=== PATIENT | male | born 1940 | race Caucasian/White ===

== ENCOUNTER 2016-03-27 16:48 | Emergency (ER) | payer OTHER, MEDICARE ==
[~2016-03-27] VITALS: Ht 177.8 cm; Wt 78.5 kg
[~2016-03-27 16:48] MED LIST: AMIODARONE HCL200 M1 PO; AMLODIPINE BESYL5 M1 PO; BICALUTAMIDE50 M1 PO; FLEXERIL 5MG TAB5 MG PO; HYDROXYZINE HCL25 M2 PO; LOSARTAN POTASS25 M1 PO; MEDROL4 M2 PO; METOPROLOL SUCC50 M2 PO; XARELTO15 M1 PO
[2016-03-27] MEDS ORDERED: LOSARTAN POTASS50 M1 PO (17:56)
[2016-03-27] MEDS ORDERED: AMLODIPINE BESY10 M1 PO (17:58)
--- NOTE | 2016-03-27 18:01 | ED MVC/FALL/TRAUMA COMPLAINT ---
History of Present Illness General Chief Complaint: Fall Stated Complaint: FALL THIS AFTERNOON, R ARM AND R LEG PAIN Source: patient Exam Limitations: no limitations Vital Signs & Intake/Output Vital Signs & Intake/Output Vital Signs Date Time Temp Pulse Resp B/P Pulse O2 O2 Flow FiO2 Ox Delivery Rate 03/27 1949 62 112/70 03/27 1822 98 Room Air 03/27 1706 97.1 58 15 103/53 95 Room Air ED Intake and Output 03/28 0000 03/27 1200 Intake Total Output Total Balance Patient 173 lb Weight Allergies Coded Allergies: NO KNOWN ALLERGIES (07/25/15) Reconcile Medications Amiodarone HCl 200 MG TABLET 1 TAB PO DAILY HEART (Reported) Amlodipine Besylate 10 MG TABLET 1 TAB PO DAILY BP (Reported) Bicalutamide 50 MG TABLET 1 TAB PO DAILY CANCER (Reported) Losartan Potassium 50 MG TABLET 1 TAB PO DAILY BP (Reported) Oxycodone HCl/Acetaminophen (Percocet 5-325 MG Tablet) 5 MG-325 MG TABLET 1 TAB PO Q4-6 PRN PAIN Rivaroxaban (Xarelto) 15 MG TABLET 1 TAB PO DAILY BLOOD THINNER (Reported) Triage Note: PT TO ED AFTER SLIPPING AND FALLING AT ICE AT HOME, NO LOC, NO HEAD STRIKE, C/O R SIDE BODY PAIN, SPECIFICALLY SHOULDER AND R ARM. UNABLE TO ASSESS R ARM AND SHOULDER DUE TO PT NOT WANTING HIS COAT REMOVED "UNTIL WE HAVE TO DO IT IN A ROOM" Triage Nurses Notes Reviewed? 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 No loss of consciousness had occurred. Patient has been unable to move his arm since. Patient has been able to weight bear with mild pain to the right hip. Denies any head strike. Denies any neck pain back pain abdominal pain chest pain elbow pain and wrist pain headache. (REYNOLD CHAN) Past History Travel History Traveled to [place] past 21 day No Medical History Any Pertinent Medical History? see below for history Neurological: NONE EENT: NONE Cardiovascular: AFIB, hypertension Respiratory: NONE Gastrointestinal: NONE Hepatic: NONE Renal: NONE Musculoskeletal: BONE METS Psychiatric: NONE Endocrine: NONE Cancer(s): PROSTATE W BONE METS (metastatic) Surgical History Surgical History: non-contributory Psychosocial History What is your primary language Lebanese Tobacco Use: Quit >30 days ago ETOH Use: occasional use Illicit Drug Use: denies illicit drug use Family History Hx Contributory? No (REYNOLD CHAN) Review of Systems Review of Systems Constitutional: Reports: no symptoms. Eyes: Reports: no symptoms. Ears, Nose, Throat, Mouth: Reports: no symptoms. Respiratory: Reports: no symptoms. Cardiovascular: Reports: no symptoms. Gastrointestinal/Abdominal: Reports: no symptoms. Genitourinary: Reports: no symptoms. Musculoskeletal: Reports: see HPI, joint pain, muscle pain. Skin: Reports: no symptoms. Neurological/Psychological: Reports: no symptoms. All Other Systems: Reviewed and Negative (REYNOLD CHAN) Physical Exam Physical Exam General Appearance: no apparent distress, alert, comfortable Comments: Well-developed well-nourished person in no acute distress HEENT: Normal EENT exam, extraocular motion intact, no nystagmus. Pupils equally round and reactive to light and accommodation. Nose is atraumatic. External auditory canal and Tympanic membranes clear. Pharynx normal. No swelling or edema. Neck: Supple, no lymphadenopathy, normal range of motion without pain or tenderness Back: Nontender, no CVA tenderness. Full range of motion Cardiovascular: Regular rate and rhythms no murmurs rubs or gallops, normal JVP Respiratory: Chest nontender. No respiratory distress.breath sounds clear to auscultation bilaterally Abdomen: Soft, nontender nondistended, no appreciable organomegaly. Normal bowel sounds. No ascites Extremity: No edema, no calf tenderness to palpation, normal and equal pulses. Right shoulder noted lateral glenohumeral point tenderness and sulcus sign nontender clavicle patient unable to move right arm Right elbow nontender full active range of motion normal inspection Right wrist and hand nontender normal inspection Right arm radial pulse +2 dermatomes intact capillary refill less than 2 seconds in 1 - 5 digits Right hip patient able to perform straight leg raise with pain full active range of motion noted Right knee normal inspection nontender full active range of motion Right ankle nontender normal inspection Right leg pedal pulse +2 dermatomes intact Neuro: Alert oriented x3, motor sensory normal, cranial nerves II through XII grossly intact. Skin: No appreciable rash on exposed skin, skin is warm and dry. Psych: Mood and affect is normal, memory and judgment is normal. Core Measures ACS in differential dx? No Severe Sepsis Present: No Septic Shock Present: No (REN GRAHAM,REYNOLD) Progress Differential Diagnosis: aoritic dissection, abd injury, C/T/L spine injury, ext injury, ICH, pelvis injury, pnemothorax, spinal cord injury, FRACTURE, DISLOCATION Plan of Care: Orders Procedure Date/time Status XRY-SHOULDER COMPLETE-RIGHT 03/27 1817 Active XRY-HIP 2-3 VIEWS, RIGHT 03/27 1817 Active Patient declines pain medications when offered Patient has no central spinous tenderness and denies any head strike or head trauma. Patient has nontender abdomen and no chest pain or rib pain. Patient was neurovascularly intact for concerns of right shoulder dislocation. Patient was able to weight-bear in the emergency room with pain to the right hip x-rays to the right hip and right ankle are warranted where patient has pain Discussed patient with Dr. Lawson who evaluated x-rays and which he advised patient to follow up in office tomorrow have shoulder immobilizer placed Shoulder immobilizer was placed to right shoulder which. Post neurovascular was intact. Patient was able to weight-bear in the emergency room and has concerns of right hip strain however no osseous injury is noted on x-ray. Patient does have significant right humeral fracture Discussed results and disposition plan with patient and family members who felt comfortable that patient return back home (REN GRAHAM,REYNOLD) Diagnostic Imaging: Viewed by Me: Radiology Read. Radiology Impression: acute abnormality, fracture Comments: PATIENT: VASILE KAM PRESENT AGE: 75 PATIENT ACCOUNT NO: [id number] : 38 LOCATION: [facility] ORDERING PHYSICIAN: REYNOLD GRAHAM SERVICE DATE: 03/27/16 EXAM TYPE: RAD - XRY-HIP 2-3 VIEWS, RIGHT; XRY-SHOULDER COMPLETE-RIGHT EXAMINATION: XR SHOULDER, RIGHT XR HIP, RIGHT CLINICAL INFORMATION: Right shoulder pain following a fall. Dislocation. COMPARISON: Pelvic radiograph dated 02/25/2014. TECHNIQUE: 3 views of the right shoulder were obtained. 2 views of the right hip were obtained. FINDINGS: Right shoulder: There is a comminuted, displaced fracture of the proximal humerus involving the transverse humeral neck component as well as a displaced greater tuberosity component. There is mild inferior subluxation of the humeral head. Degenerative changes are noted at the acromioclavicular and glenohumeral joint. There is no osseous erosion. There is no abnormal soft tissue calcification. Right hip: No fracture or dislocation. No significant joint space narrowing or marginal osteophytosis. 1.6 cm cystic structure within the femoral head and neck junction, likely representing a herniation pit. No abnormal soft tissue calcification. IMPRESSION: Right shoulder: Comminuted, displaced fracture of the proximal humerus with a transverse humeral neck component as well as a displaced greater tuberosity component. Right hip: No fracture or dislocation. (REYNOLD CHAN) Departure Departure Disposition: HOME OR SELF CARE Condition: Stable Clinical Impression Primary Impression: Right humeral fracture Secondary Impressions: Right hip pain Referrals: CHRISTEN WEEKS,SHIVAM (PCP/Family) KRISTIN WEEKS,AXEL Additional Instructions: As discussed always uses shoulder immobilizer placed and you in the emergency room for support. Tomorrow please call orthopedic Dr. Lawson for further evaluation and treatment of your symptoms. Begin icing the area directly 20 minutes every 2 hours. Begin the prescription of Percocet for pain. If symptoms worsen return to emergency room. Departure Forms: Customer Survey General Discharge Information Prescriptions: Current Visit Scripts Oxycodone HCl/Acetaminophen (Percocet 5-325 MG Tablet) 1 TAB PO Q4-6 PRN PAIN #15 TAB (REYNOLD CHAN) PA/FEDERAL JUDGE Co-Sign Statement Statement: ED Attending supervision documentation- [] I saw and evaluated the patient. I have also reviewed all the pertinent lab results and diagnostic results. I agree with the findings and the plan of care as documented in the PA's/FEDERAL JUDGE's documentation. [x] I have reviewed the ED Record and agree with the PA's/FEDERAL JUDGE's documentation. [] Additions or exceptions (if any) to the PAs/FEDERAL JUDGE's note and plan are summarized below: [] (CASSIE WEEKS,NICKO Lang)
--- NOTE | 2016-03-27 19:14 | RADIOLOGY REPORT ---
EXAMINATION: XR SHOULDER, RIGHT XR HIP, RIGHT CLINICAL INFORMATION: Right shoulder pain following a fall. Dislocation. COMPARISON: Pelvic radiograph dated 02/25/2014. TECHNIQUE: 3 views of the right shoulder were obtained. 2 views of the right hip were obtained. FINDINGS: Right shoulder: There is a comminuted, displaced fracture of the proximal humerus involving the transverse humeral neck component as well as a displaced greater tuberosity component. There is mild inferior subluxation of the humeral head. Degenerative changes are noted at the acromioclavicular and glenohumeral joint. There is no osseous erosion. There is no abnormal soft tissue calcification. Right hip: No fracture or dislocation. No significant joint space narrowing or marginal osteophytosis. 1.6 cm cystic structure within the femoral head and neck junction, likely representing a herniation pit. No abnormal soft tissue calcification. IMPRESSION: Right shoulder: Comminuted, displaced fracture of the proximal humerus with a transverse humeral neck component as well as a displaced greater tuberosity component. Right hip: No fracture or dislocation.
[2016-03-27] MEDS ORDERED: PERCOCET 5-3251 EACH PO (19:28)
[2016-03-27 19:49] VITALS: BP 112/70
== END 2016-03-27 19:49 ==
LOC: ERH 16:48
DX: S42.201A Unspecified fracture of upper end of right humerus, initial encounter for closed fracture (principal); M25.551 Pain in right hip; W00.0XXA Fall on same level due to ice and snow, initial encounter
CPT/HCPCS: 73030-RT; 73502-RT

== ENCOUNTER 2016-04-06 04:47 | Inpatient (IN) | payer OTHER, MEDICARE ==
[~2016-04-06] VITALS: Ht 177.8 cm; Wt 78.7 kg
[~2016-04-06 04:47] MED LIST changes: +AMLODIPINE BESY10 M1 PO; +LOSARTAN POTASS50 M1 PO; +PERCOCET 5-3251 EACH PO
--- NOTE | 2016-04-14 16:54 | Admission Core Measures ---
Admission Meds I reviewed the following Meds: Current Medications Sig/Oscar Start time Last Medication Dose Stop Time Status Admin Cefazolin Sodium 2,000 MG ONCE 04/14 0000 NR (Kefzol-Ancef Inj) 04/14 2359 Ropivacaine 500 ML ONCE ONE 04/14 1330 AC (NAROPIN) 04/18 0049 ON-Q Ball 1 BAG Acute Coronary Syndrome Inclusion Criteria ACS Diagnosis No Inpatient Core Measures LDL Reminder: If No, please order W/I first 24hr of stay Congestive Heart Failure Inclusion Criteria CHF Diagnosis No Cerebrovascular accident Inclusion Criteria CVA/TIA Diagnosis No Inpatient Core Measures Bedside Swallow Eval Reminder: If BSE failed, place ST order Antithrombotic Reminder: Order Antithrombotic Medication by end of day 2 Antithrombotic Reminder: Document Reason Antithrombotic Not ordered by end of day 2 AFIB/Flutter Reminder: If Present, add to problem list AFIB/Flutter Reminder: Order Anticoag Medication for pts with AFIB/Flutter Atherosclerosis Reminder: If Present, add to problem list LDL Reminder: If No, please order W/I first 24hr of stay PT Order Reminder: If No, please order Venous thromboembolism Inpatient Core Measures VTE Risk Factors: Age > 40, Cancer/chemo/oth therapy, Surgery No Mech VTE prophylaxis d/t No contraindications No VTE Pharm Prophylaxis d/t No contraindications Inclusion Criteria - Per Current guidelines, there needs to be overlap - treatment for the first 5 days of Warfarin therapy. - Parenteral Anticoagulation (IV or SC) needs to be - given along with Warfarin therapy. VTE Diagnosis No VTE Type NONE VTE Confirmed by (Test) NONE Problem List As ranked by this Provider includes Assessment & Plan 1. Right humeral fracture HOME MEDS Home Med List Amiodarone HCl 200 MG TABLET 1 TAB PO DAILY HEART (Reported) Amlodipine Besylate 10 MG TABLET 1 TAB PO DAILY BP (Reported) Bicalutamide 50 MG TABLET 1 TAB PO DAILY CANCER (Reported) Losartan Potassium 50 MG TABLET 1 TAB PO DAILY BP (Reported) Oxycodone HCl/Acetaminophen (Percocet 5-325 MG Tablet) 5 MG-325 MG TABLET 1 TAB PO Q4-6 PRN PAIN Rivaroxaban (Xarelto) 15 MG TABLET 1 TAB PO DAILY BLOOD THINNER (Reported)
--- NOTE | 2016-04-14 17:35 | Operative Report ---
Operative/Inv Procedure Report Surgery Date: 04/14/16 Name of Procedure: Right shoulder proximal humerus open reduction internal fixation Pre-Operative Diagnosis: Right shoulder comminuted comminuted proximal humerus fracture Post-Operative Diagnosis: Right shoulder comminuted proximal humerus fracture Estimated Blood Loss: 200 mL Surgeon/Marbleizing Machine Tender: CARRINGTON WEEKS,ELVER GRAHAM Anesthesia: general endotracheal tube, block Implants: [employer] high proximal humerus locking plate #[id number] Complications: None Condition: Stable to PACU Operative Indication: This is a 75-year-old male who injured his right shoulder 2 weeks ago after a fall. X-rays were taken which showed a comminuted proximal humerus fracture. Risks and benefits of the procedure were discussed with the patient at length. Risks include but are not limited to nerve damage, muscle damage, infection, blood loss, blood clots, pulmonary embolus, and even . The patient agreed to the above risks and elected to proceed with surgery. Operative/Procedure Note Note: The patient was placed on the operating table and general anesthesia was induced by the anesthesia team. The patient was then positioned into the beachchair position. The upper extremity was prepped and draped in the normal sterile fashion. The patient received IV antibiotics prior to incision. A timeout was performed and the site marking was visualized prior to incision. An incision was then made just lateral to the coracoid extending distally toward the axillary fold. A deltopectoral approach was then performed. Any bleeding vessels were identified and cauterized. The cephalic vein was then identified and released. It was retracted in order to get access to the deltopectoral groove. Blunt dissection was then performed to split the deltoid and pectoralis muscle tendons. Adhesions deep to the deltoid were then freed up with blunt dissection. The pectoralis major tendon was then released of the proximal third of its insertion with a Bovie. Bursal tissue overlying the proximal humerus was then taken down. The greater tuberosity fracture site was identified and exposed. A soft tissue interposition was taken down. The surgical neck fracture was also exposed at this time. There was significant shortening of the fracture site. An elevator was used to free up the head neck junction to regain length. Orthocord sutures were then placed through the musculotendinous junction of the greater and lesser tuberosities. The sutures were then used to fix the greater and lesser tuberosity fragments to each other in order to convert the fracture into a 2 port fracture. An elevator was used to elevate the humeral head up to take the fracture out of varus. K wires were then used to maintain reduction while a plate was applied. The central K wire hole was then filled to check plate height. The cortical oblong hole was then filled with a cortical screw. Multiple smooth locking pegs were then drilled and filled in order to hold the humeral head out to length. One locking screw was then placed into the humeral head. 2 cortical locking screws were then placed distally. X-rays were taken and one of the screws was noted to be slightly prominent and was switched out. The wound was then copiously irrigated. The small bone void at the junction of the greater and lesser tuberosities was then filled with demineralized bone matrix putty. 2 more sutures were placed through the musculotendinous junction of the greater and lesser tuberosities and tied to the plate. The deltopectoral interval was closed with 0 Vicryl suture. The skin was closed with 2-0 Vicryl suture and a running 3-0 nylon stitch.
--- NOTE | 2016-04-14 19:02 | RADIOLOGY REPORT ---
EXAMINATION: XR SHOULDER, RIGHT CLINICAL INFORMATION: C-arm imaging right shoulder COMPARISON: Right shoulder 03/27/2016 TECHNIQUE: C-arm imaging. Fluoroscopy time: 147.5 seconds. Surgeon: Vinny Moreno Images: 3 FINDINGS: Orthopedic plate and screw placed into the humeral head and neck. IMPRESSION: Status post ORIF right humeral fracture.
--- NOTE | 2016-04-14 19:39 | PN- Orthopedic ---
Subjective Subjective: The patient was seen this evening postoperatively. He reports that his pain is under adequate control and has no other complaints at the current time. He denies any chest pain or difficulty breathing. He has yet to void postoperatively but reports feeling comfortable and without tears to urinate. Objective Vital Signs and I&Os Vital signs: Blood pressure 118/65, pulse 72, temperature 97.3, O2 saturation 95 % on 2 L via nasal cannula I's and O's: 1950 ML's in of lactated Ringer's/due to void/EBL 350ml Physical Exam: Gen.: Alert and in obvious distress Skin: Warm and dry Cardiac: S1 and S2 irregular Pulmonary: Bilateral breath sounds are equal and decreased at bases Extremities: Right upper extremity in sling with dressing is clean, dry, and intact. There positive radial pulses and gross motor and sensory are intact. Bilateral lower extremities are warm without calf tenderness Assessment/Plan Assessment/Plan Assessment: 75-year-old male status post right shoulder ORIF. Postoperative the patient is progressing as expected and his pain is under adequate control. Plan: Monitor for postoperative void Continue light hydration and advance diet as tolerated 2 doses of postoperative prophylactic antibiotics Resume home medications and restart xarelto in the morning GI and DVT prophylaxis Continue current pain regiment Follow-up cardiology consultation recommendations Monitor in telemetry overnight Possible discharge home tomorrow Core Measures/Miscellaneous Venous Thromboembolism VTE Risk Factors: Age > 40, Cancer/chemo/oth therapy, Surgery VTE Contraindications: No Contraindications VTE Diagnosis: No VTE Type: NONE VTE Confirmed by (Test): NONE Beta Muna Is Beta Muna a Home Med? No Antibiotics Is Patient on Antibiotics? Yes If Yes: prophylaxis
[2016-04-14 20:27] VITALS: BP 124/62
[2016-04-14 22:00] VITALS: BP 104/62
[2016-04-15] VITALS: BP 108/60
[2016-04-15 02:08] VITALS: BP 114/54
[2016-04-15 06:01] VITALS: BP 112/50
--- NOTE | 2016-04-15 07:42 | PN- Orthopedic ---
Surgical Brief Attending Note Brief Attending Note: c/o right shoulder pain, ON-Q just turned up AVSS RUE - dressing c/d/i +motor/sens r/u/m A/P POD 1 s/p R proximal humerus ORIF D/C home pending lab results Follow up in 2 weeks may resume anticoagulation today
--- NOTE | 2016-04-15 07:55 | Patient Discharge Instructions ---
Discharge Instructions General Discharge Information You were seen/treated for: Right shoulder comminuted comminuted proximal humerus fracture You had these procedures: Surgery Date: 04/14/16 Name of Procedure: Right shoulder proximal humerus open reduction internal fixation Watch for these problems: fever>101.3, increased pain, redness/swelling/drainage Other wound care: dry sterile dressing 2 days after surgery Special Instructions: remove on-q pain device when it is empty Diet Continue normal diet: Yes Recommended Diet: Regular Activity Full Activity/No Limits: No Activity Self Limited: Yes Other activity limits: pendulums for several weeks otherwise as directed by Acute Coronary Syndrome Inclusion Criteria At DC or during hospital stay patient has or had the following: ACS DIAGNOSIS No Discharge Core Measures Meds if any: Prescribed or Continued at Discharge Meds if any: NOT Prescribed or Continued at Discharge Congestive Heart Failure Inclusion Criteria At DC or during hospital stay patient has or had the following: CHF DIAGNOSIS No Discharge Core Measures Meds if any: Prescribed or Continued at Discharge Meds if any: NOT Prescribed or Continued at Discharge Cerebrovascular accident Inclusion Criteria At DC or during hospital stay patient has or had the following: CVA/TIA Diagnosis No Discharge Core Measures Meds if any: Prescribed or Continued at Discharge Meds if any: NOT Prescribed or Continued at Discharge Venous thromboembolism Inclusion Criteria VTE Diagnosis No VTE Type NONE VTE Confirmed by (Test) NONE Discharge Core Measures - Per Current guidelines, there needs to be overlap - treatment for the first 5 days of Warfarin therapy. - If discharged on Warfarin prior to 5 days of - overlap therapy, the patient will need to be - assessed for post discharge needs including - *Post discharge parental anticoagulation - *Warfarin and/or parental anticoagulation education - *Follow up date to check INR post discharge At least 5 days overlap therapy as Inpatient No Meds if any: Prescribed or Continued at Discharge Note: Overlap Therapy is Warfarin and Anticoagulant Meds if any: NOT Prescribed or Continued at Discharge
[2016-04-15] MEDS ORDERED: PERCOCET 5-3251 EACH PO (08:00)
--- NOTE | 2016-04-15 08:19 | Surg Short-stay <48hrs Dis Sum ---
Visit Information Visit Dates Admission Date: 04/14/16 Discharge Date: 04/15/16 Surgical Short Stay DC Summary Admission Diagnosis: Right shoulder comminuted proximal humerus fracture Final Diagnosis: Right shoulder comminuted proximal humerus fracture acute brody-operative blood loss anemia, s/p transfusion 1 unit prbc (04/15/16) Procedure(s): Surgery Date: 04/14/16 Name of Procedure: Right shoulder proximal humerus open reduction internal fixation Summary/Significant Findings: Electively scheduled right shoulder proximal humerus open reduction internal fixation by on 04/14/16 for right shoulder comminuted proximal humerus fracture, which went routinely. On-q pain device left in place for additional brody-operative pain control. PT eval post-op day#1 to instruct pendulum exercises prior to discharge to home. To restart anticoagulation (xarelto) today (POD#1). Seen by , his labourers, on POD#1, who is recommending a blood transfusion of 1 unit prbc for his acute brody-operative blood loss anemia. Pending he tolerates this transfusion, agrees that he is stable for discharge to home today with follow up within a week with his PCP regarding his anemia s/p surgery. The patient understands and agrees. Condition at Discharge: stable Discharge Disposition: home or self care Discharge instructions provided to patient/family: Yes Post discharge follow-up plan: follow up with in 2 weeks follow up with his PCP within 1 week to f/u anemia
[2016-04-15 08:30] LABS: ABSOLUTE BASOPHIL COUNT 0 /CUMM (0.0-0.2); ABSOLUTE EOSINOPHIL COUNT 0 /CUMM (0.0-0.7); MEAN PLATELET VOLUME 7.7 FL (7.4-10.4)
[2016-04-15 08:32] VITALS: BP 110/62
[2016-04-15 08:40] LABS: ABSOLUTE LYMPH COUNT 0.7 /CUMM (1.2-3.4); ABSOLUTE MONOCYTE COUNT 0.8 /CUMM (0.10-0.60); BASOPHIL % 0.1 % (0.0-2.0); EOSINOPHIL % 0.1 % (0-5); MEAN CORPUSCULAR HGB 31.6 PG (27.0-31.0); MEAN CORPUSCULAR HGB CONC 33.3 G/DL (33.0-37.0); MEAN CORPUSCULAR VOLUME 94.8 FL (80.0-94.0); PLATELET COUNT 234 /CUMM (130-400); RBC DISTRIBUTION WIDTH 13.5 % (11.5-14.5); RED BLOOD CELL CT 2.43 /CUMM (4.70-6.10); WHITE BLOOD CELL COUNT 9.6 /CUMM (4.8-10.8)
[2016-04-15 09:58] LABS: GRANULOCYTE % 83.6 % (42.2-75.2)
--- NOTE | 2016-04-15 10:14 | Cons- Cardiology ---
General Information and HPI Consulting Request Date of Consult: 04/15/16 Requested By: ELVER SHULTZ MD Reason for Consult: Cardiac evaluation in a patient with known heart disease who just underwent shoulder surgery. Source of Information: patient, old records Exam Limitations: no limitations History of Present Illness: Mr. Mccauley is a pleasant 75-year-old man who just underwent shoulder surgery yesterday. He has a past history of atrial fibrillation which occurred about one year ago in the setting of pneumonia. He was eventually placed on amiodarone and Xarelto. His amiodarone was discontinued but he is still on Xarelto. Apparently he has not had any recurrence of his atrial fibrillation. He also has hypertension and a known left bundle branch block on his electrocardiogram. According to his records in the chart his echo has shown normal left ventricular systolic function and some diastolic dysfunction. The patient did not have any problems with the surgery. He has been in sinus rhythm on the monitor overnight with no arrhythmias. He has no chest pain, shortness of breath, palpitations. He is having some pain from his surgery but otherwise is hemodynamically stable at this time. His H&H this morning shows a hemoglobin of 7.7 and a hematocrit of 23. Allergies/Medications Allergies: Coded Allergies: NO KNOWN ALLERGIES (07/25/15) Home Med List: Amiodarone HCl 200 MG TABLET 1 TAB PO DAILY HEART (Reported) Amlodipine Besylate 10 MG TABLET 1 TAB PO DAILY BP (Reported) Bicalutamide 50 MG TABLET 1 TAB PO DAILY CANCER (Reported) Losartan Potassium 50 MG TABLET 1 TAB PO DAILY BP (Reported) Oxycodone HCl/Acetaminophen (Percocet 5-325 MG Tablet) 5 MG-325 MG TABLET 1-2 TAB PO Q4-6 PRN PRN pain control take as directed, as needed. do not combine with tylenol. Oxycodone HCl/Acetaminophen (Percocet 5-325 MG Tablet) 5 MG-325 MG TABLET 1 TAB PO Q4-6 PRN PAIN Rivaroxaban (Xarelto) 15 MG TABLET 1 TAB PO DAILY BLOOD THINNER (Reported) Review of Systems Review of Systems: He is only complaining of pain in the surgical site Past History Medical History Blood Transfusion Hx: No Neurological: NONE EENT: NONE Cardiovascular: AFIB, hypertension Respiratory: NONE Gastrointestinal: NONE Hepatic: NONE Renal: NONE Musculoskeletal: BONE METS Psychiatric: NONE Endocrine: NONE Cancer(s): PROSTATE W BONE METS (metastatic) Surgical History Surgical History: non-contributory Psychosocial History Smoking Status: Former Smoker Exam & Diagnostic Data Vital Signs and I&O Vital Signs Date Time Temp Pulse Resp B/P Pulse O2 O2 Flow FiO2 Ox Delivery Rate 04/15 0911 77 120/64 04/15 0911 77 120/64 04/15 0910 77 120/64 04/15 0832 98.1 80 16 110/62 95 Nasal 2.0L Cannula 04/15 0601 98.5 82 16 112/50 96 Nasal 2.0L Cannula 04/15 0208 97.7 90 16 114/54 96 Nasal 2.0L Cannula 04/15 0000 Nasal 2.0L Cannula 04/15 0000 98.2 84 18 108/60 97 Nasal 2.0L Cannula 04/14 2200 98.5 80 18 104/62 97 Nasal 2.0L Cannula 04/14 2026 98.3 79 18 124/62 95 Nasal 2.0L Cannula 04/14 2024 Nasal 2.0L Cannula Intake & Output 04/15 1600 04/15 0800 04/15 0000 04/14 1600 04/14 0800 04/14 0000 Intake Total 1120 390 Output Total 550 250 Balance 570 140 Intake, IV 400 150 Intake, Oral 720 240 Output, Urine 550 250 Patient 173 lb Weight Physical Exam: He is an elderly man sitting in a chair complaining of mild pain but in no distress HEENT exam is normal Neck veins not distended Carotids normal Chest is clear Heart reveals soft heart sounds, regular rhythm, no murmurs Abdomen nontender Extremities no pedal edema, right arm in an immobilizer Labs/[place] Results: Laboratory Tests 04/15 0620 Chemistry Sodium (137 - 145 mmol/L) 141 Potassium (3.5 - 5.1 mmol/L) 4.6 Chloride (98 - 107 mmol/L) 109 H Carbon Dioxide (22 - 30 mmol/L) 22 Anion Gap (5 - 16) 11 BUN (9 - 20 mg/dL) 26 H Creatinine (0.7 - 1.2 mg/dL) 1.4 H Estimated GFR (>60 ml/min) 49 L BUN/Creatinine Ratio (7 - 25 %) 18.6 Hematology CBC w Diff NO MAN DIFF REQ WBC (4.8 - 10.8 /CUMM) 9.6 RBC (4.70 - 6.10 /CUMM) 2.43 L Hgb (14.0 - 18.0 G/DL) 7.7 L Hct (42 - 52 %) 23.0 L MCV (80.0 - 94.0 FL) 94.8 H MCH (27.0 - 31.0 PG) 31.6 H RDW (11.5 - 14.5 %) 13.5 Plt Count (130 - 400 /CUMM) 234 MPV (7.4 - 10.4 FL) 7.7 Gran % (42.2 - 75.2 %) 83.6 H Lymphocytes % (20.5 - 51.1 %) 7.3 L Monocytes % (1.7 - 9.3 %) 8.9 Eosinophils % (0 - 5 %) 0.1 Basophils % (0.0 - 2.0 %) 0.1 Absolute Granulocytes (1.4 - 6.5 /CUMM) 8.0 H Absolute Lymphocytes (1.2 - 3.4 /CUMM) 0.7 L Absolute Monocytes (0.10 - 0.60 /CUMM) 0.8 H Absolute Eosinophils (0.0 - 0.7 /CUMM) 0 Absolute Basophils (0.0 - 0.2 /CUMM) 0 PUBS MCHC (33.0 - 37.0 G/DL) 33.3 Diagnostic Data EKG Results Preoperative EKG shows sinus rhythm with left bundle branch block CXR Results No chest x-ray in the file Assessment/Plan Assessment/Plan This patient underwent shoulder surgery yesterday. He has a history of left bundle branch block, hypertension, atrial fibrillation in the setting of an acute illness. He also has underlying prostate cancer with bone metastases. He tolerated his surgery well. There have been no arrhythmias seen on the monitor since the surgery. He is hemodynamically stable. He has a low H&H and may need a transfusion, otherwise from a cardiac standpoint he is stable for discharge. He should be restarted on his pre-operative medications including Xarelto. I would recommend starting his Xarelto tomorrow. Copies To: JAIME WEEKS,GISELLE MCNAIR MD,JAYSON Avalos Acknowledgment - Thank you for your consult request.
[2016-04-15 16:10] VITALS: BP 106/58
== END 2016-04-15 19:00 | DRG 493 ==
LOC: ENRESERVDT → ENRESERVTM → CANRESERV → SDA 04:47 → UNDOADMIN 04:47 → SDA 04-13 23:12 → UNDOADMIN 04-13 23:12 → ENPENDDIS 04-14 00:01 → 1NO 04-14 00:01 → SDA 04-14 00:01 → 1NO 04-14 19:56
PROVIDERS: Physician Assistant Surgical; ADMIT Orthopaedic Surgery
PROC: 0PSC04Z Reposition Right Humeral Head with Internal Fixation Device, Open Approach (ICD-10-PCS; principal; 2016-04-14)
PROC: 30233N1 Transfusion of Nonautologous Red Blood Cells into Peripheral Vein, Percutaneous Approach (ICD-10-PCS; 2016-04-15)
DX: S42.201A Unspecified fracture of upper end of right humerus, initial encounter for closed fracture (principal); C79.51 Secondary malignant neoplasm of bone; I48.2 Chronic atrial fibrillation; I44.7 Left bundle-branch block, unspecified; C61 Malignant neoplasm of prostate; D62 Acute posthemorrhagic anemia; W19.XXXA Unspecified fall, initial encounter; I12.9 Hypertensive chronic kidney disease with stage 1 through stage 4 chronic kidney disease, or unspecified chronic kidney disease; N18.9 Chronic kidney disease, unspecified; Z79.01 Long term (current) use of anticoagulants; Z87.891 Personal history of nicotine dependence
CPT/HCPCS: 1NP; SDA; 36415; 73030-RT; 82436; 86920; 97110-GO; 97116-GO; 97161-GP; C1713; J0131; J0690; J2795; J9202; P9016